=== PATIENT | male | born 1970 | race American Indian/Alaskan Native ===

== ENCOUNTER 2020-05-07 09:36 | Emergency (ER) | payer BC ==
--- NOTE | 2020-05-07 10:34 | EDPHYS ---
Physician Documentation [facility] Name: Judi Whatley Age: 50 yrs Sex: Male : 1970 Arrival Date: 05/07/2020 Time: 09:43 Bed 15 Private MD: ED Physician Altaf Brito HPI: 05/07 10:34 This 50 yrs old Other Male presents to ER via Ambulatory with complaints of Medical jr8 Complaint. 10:34 The pt presented to the ED c/o "erectile dysfunction for at least 6 months". The jr8 patient states that he has not seen a doctor about this issue, and denies any other symptoms at this time. No medical problems or past surgeries.. Historical: - Allergies: 10:14 Sulfa (Sulfonamide Antibiotics); ss - Home Meds: 10:14 None [Active]; ss - PMHx: 10:14 None; ss - PSHx: 10:14 None; ss - Immunization history:: Adult Immunizations up to date. - Social history:: Smoking status: Patient denies any tobacco usage or history of. ROS: 10:34 Eyes: Negative for injury, pain, redness, and discharge, ENT: Negative for injury, jr8 pain, and discharge, Neck: Negative for injury, pain, and swelling, Cardiovascular: Negative for chest pain, palpitations, and edema, Respiratory: Negative for shortness of breath, cough, wheezing, and pleuritic chest pain, Abdomen/GI: Negative for abdominal pain, nausea, vomiting, diarrhea, and constipation, Back: Negative for injury and pain, : Negative for injury, bleeding, discharge, and swelling, MS/Extremity: Negative for injury and deformity, Skin: Negative for injury, rash, and discoloration, Neuro: Negative for headache, weakness, numbness, tingling, and seizure. Exam: 10:34 Constitutional: This is a well developed, well nourished patient who is awake, alert, jr8 and in no acute distress. Cardiovascular: Regular rate and rhythm with a normal S1 and S2. No gallops, murmurs, or rubs. Normal PMI, no JVD. No pulse deficits. Respiratory: Lungs have equal breath sounds bilaterally, clear to auscultation and percussion. No rales, rhonchi or wheezes noted. No increased work of breathing, no retractions or nasal flaring. Abdomen/GI: Soft, non-tender, with normal bowel sounds. No distension or tympany. No guarding or rebound. No evidence of tenderness throughout. Skin: Warm, dry with normal turgor. Normal color with no rashes, no lesions, and no evidence of cellulitis. MS/ Extremity: Pulses equal, no cyanosis. Neurovascular intact. Full, normal range of motion. Neuro: Awake and alert, GCS 15, oriented to person, place, time, and situation. Cranial nerves II-XII grossly intact. Motor strength 5/5 in all extremities. Sensory grossly intact. Cerebellar exam normal. Normal gait. Vital Signs: 10:11 BP 139 / 78; Pulse 77; Resp 16; Temp 97.8(TE); Pulse Ox 100% on R/A; Pain 0/10; ss MDM: 10:27 Patient medically screened. jr8 10:32 Data reviewed: vital signs, nurses notes, and as a result, I will discharge patient. jr8 Data interpreted: Pulse oximetry: on room air is 100 %. Interpretation: normal. Counseling: I had a detailed discussion with the patient and/or guardian regarding: the historical points, exam findings, and any diagnostic results supporting the discharge/admit diagnosis, the need for outpatient follow up, a family practitioner, to return to the emergency department if symptoms worsen or persist or if there are any questions or concerns that arise at home. 10:34 ED course: Discussed with patient that we do not manage erectile dysfunction in the ED. jr8 Will refer to PCP for further work up. Patient understood and is good with plan . Administered Medications: No medications were administered Disposition: 11:28 Co-signature as Attending Physician, Altaf Brito MD. rn Disposition: 05/07/20 10:33 Discharged to Home. Impression: Disorder of male genital organs, unspecified. - Condition is Stable. - Discharge Instructions: Erectile Dysfunction. - Medication Reconciliation Form, Thank You Letter, Antibiotic Education, Prescription Opioid Use form. - Follow up: Patrick Addison DO; When: 2 - 3 days; Reason: Recheck today's complaints, Continuance of care, Re-evaluation by your physician. - Problem is new. - Symptoms have improved. Signatures: Altaf Brito MD MD rn Smirch, Shelby, RN RN ss Roszak, Josh, PA PA jr8 Corrections: (The following items were deleted from the chart) 10:42 10:33 05/07/2020 10:33 Discharged to Home. Impression: Disorder of male genital organs, ss unspecified. Condition is Stable. Forms are Medication Reconciliation Form, Thank You Letter, Antibiotic Education, Prescription Opioid Use. Follow up: Patrick Addison; When: 2 - 3 days; Reason: Recheck today's complaints, Continuance of care, Re-evaluation by your physician. Problem is new. Symptoms have improved. jr8
--- NOTE | 2020-05-07 10:34 | ER ---
Nurse's Notes [facility] Name: Judi Whatley Age: 50 yrs Sex: Male : 1970 Arrival Date: 05/07/2020 Time: 09:43 Bed 15 Private MD: Diagnosis: Disorder of male genital organs, unspecified Presentation: 05/07 10:11 Chief complaint: Patient states: "My manhood is not as strong as it should be". Pt ss reports this has been ongoing for 6 months. Coronavirus screen: Client denies travel out of the [place] in the last 14 days. Ebola Screen: Patient denies exposure to infectious person. Patient denies travel to an Ebola-affected area in the 21 days before illness onset. Initial Sepsis Screen: Does the patient meet any 2 criteria? No. Patient's initial sepsis screen is negative. Does the patient have a suspected source of infection? No. Patient's initial sepsis screen is negative. Risk Assessment: Do you want to hurt yourself or someone else? Patient reports no desire to harm self or others. Onset of symptoms is unknown. 10:11 Method Of Arrival: Ambulatory ss 10:11 Acuity: BRY 5 ss Historical: - Allergies: 10:14 Sulfa (Sulfonamide Antibiotics); ss - Home Meds: 10:14 None [Active]; ss - PMHx: 10:14 None; ss - PSHx: 10:14 None; ss - Immunization history:: Adult Immunizations up to date. - Social history:: Smoking status: Patient denies any tobacco usage or history of. Screenin:40 Abuse screen: Denies threats or abuse. Denies injuries from another. Nutritional ss screening: No deficits noted. Tuberculosis screening: Never had TB. Fall Risk None identified. Assessment: 10:25 General: Appears in no apparent distress. comfortable, Behavior is calm, cooperative, ss Denies fever, feeling ill, fatigue, chills. Pain: Denies pain. Neuro: Level of Consciousness is awake, alert, obeys commands, Oriented to person, place, time, situation. Cardiovascular: Capillary refill < 3 seconds is brisk in bilateral fingers. Respiratory: Airway is patent Respiratory effort is even, unlabored, Respiratory pattern is regular, symmetrical. GI: Patient currently denies nausea, vomiting. : Reports erectile dysfunction that began 6 months ago Denies burning with urination, urinary frequency. EENT: Oral mucosa is moist. Throat is clear. Derm: Skin is intact, is healthy with good turgor, Skin is dry, Skin is pink, warm \\T\\ dry. normal. Musculoskeletal: Circulation, motion, and sensation intact. Range of motion: intact in all extremities, Swelling absent. Vital Signs: 10:11 BP 139 / 78; Pulse 77; Resp 16; Temp 97.8(TE); Pulse Ox 100% on R/A; Pain 0/10; ss ED Course: 09:43 Patient arrived in ED. ag5 10:14 Triage completed. ss 10:14 Sarah Chaudhry, TAMMIE is Primary Nurse. ca1 10:14 Arm band placed on right wrist. ss 10:27 Sánchez Andre PA is PHCP. jr8 10:27 Altaf Brito MD is Attending Physician. jr8 10:32 Patrick Addison DO is Referral Physician. jr8 10:39 No provider procedures requiring assistance completed. Patient did not have IV access ss during this emergency room visit. 10:40 Patient has correct armband on for positive identification. Bed in low position. Call ss light in reach. Administered Medications: No medications were administered Outcome: 10:33 Discharge ordered by . jr8 10:39 Discharged to home ambulatory. ss 10:39 Condition: good 10:39 Discharge instructions given to patient, Instructed on discharge instructions, follow up and referral plans. Demonstrated understanding of instructions, follow-up care, medications. 10:42 Patient left the ED. ss Signatures: Solange Marie RN RN Sánchez Andre PA PA [facility] Sarah Chaudhry RN RN ca1 Juan Sanchez ag5 Corrections: (The following items were deleted from the chart) 10:41 10:25 : No signs and/or symptoms were reported regarding the genitourinary system. ss ss
[2020-05-07 10:47] VITALS: BP 139/78; TEMP 97.8; O2SAT 100
== END 2020-05-07 10:42 | disposition home or self-care (01) ==
LOC: ER 09:36
DX: N50.9 Disorder of male genital organs, unspecified (principal); Z88.2 Allergy status to sulfonamides
CPT/HCPCS: 99281